=== PATIENT | male | born 1995 | race Caucasian/White ===

== ENCOUNTER 2019-03-06 09:54 | Emergency (ER) | payer MEDICAID, SELFPAY ==
[2019-03-06 09:55] VITALS: BP 144/80; PULSE 85; RESP 17; TEMP 36.7; O2SAT 99; BMI 31.2
--- NOTE | 2019-03-06 10:25 | VDLE_ITS ---
Reason For Study: Pain, Swelling Procedure LEFT Exam performed portable in ED. GSV is normal. A preliminary report was called and/or faxed CFV is compressible, spontaneous, phasic, to ED Nurse. competent, and demonstrates normal augmentation. FV is compressible, spontaneous, phasic, competent and demonstrates normal augmentation. POP V is compressible, spontaneous, phasic, competent and demonstrates normal augmentation. T/P Trunk is compressible. PTV is compressible. LT PerV is compressible. Nonvascular heterogenous structure noted in the proximal calf muscle. Interpretation Summary There is no evidence of left lower extremity deep vein thrombosis. Left great saphenous vein appears patent and compressible segmentally. Heterogenous proximal left calf muscular lesion. Dimensions are not reported but clinical correlation and if required additional soft tissue imaging would be appropriate Ordering Physician: Марина Bedolla Performed By: Hermila Myers RVT
--- NOTE | 2019-03-06 10:27 | ED.VIS.LOWEX ---
History of Present Illness Chief Complaint: Lower Extremity Injury Informant: Patient Occurred: Weeks - 1 Context: Gradual Onset Timing: Continuous Quality of Pain: Aching Narrative: Patient is a 23-year-old male with no significant past history presenting with left lower leg pain. Patient states it started about a week ago. He denies any trauma or injury. He states he works regularly but did not start after a leg day. He has been taking Ibuprofen with minimal relief of his symptoms. His cousin who is a PA look at his leg and was worried about blood clots patient came to the emergency room to be evaluated further. Patient does not have a primary care doctor. He denies any recent travel or immobilization. He denies any history of DVT or PE. He denies any chest pain or shortness of breath. Past Medical History - Allergies and Home Meds Allergies/Adverse Reactions: Allergies No Known Allergies Allergy (Verified 03/06/19 09:55) Primary Care Physician: Ubaldo Galvan DO [STAFF PHYSICIAN] - Drake Le MD [NON-STAFF] - Past Medical History: None Surgical History: noncontributory Smoking Status: Current every day smoker Review of Systems General: Denies: Chills, Fever, Sweats Eyes: Denies: Visual changes - bilaterally, Diplopia Cardiovascular: Denies: Chest pain, Palpitations Respiratory: Denies: Dyspnea, Cough, Dyspnea on exertion Gastrointestinal: Denies: Abdominal pain, Nausea, Vomiting, Diarrhea, Melena, Hematochezia Genitourinary: Denies: Dysuria, Hematuria, Frequency Musculoskeletal: Reports: Swelling - left calf, Extremity Pain - left calf . Denies: Back pain Skin: Denies: Rash, Wounds Neurological: Denies: Headache, Weakness, Numbness Physical Exam Vital Signs/Narrative: Vital Signs Temp Pulse Resp BP Pulse Ox 03/06/19 09:55 98.0 F 85 17 144/80 H 99 Inital Vital Signs reviewed: Yes - Extremity Exam Left Knee: - - Normal. Negative for: Deformity, Edema, Limited ROM Left Tib Fib: - - Tenderness to palpation calf muscle. Compartments are soft. No pitting edema. I do not appreciate edema. No erythema or skin changes Left Ankle: - - Normal General: Well nourished, Well developed Head: Normocephalic, Atraumatic Eyes: Perrl, EOMI ENT: No Trauma, Moist Mucous Membranes Neck: Nontender, Full ROM Cardiovascular: Regular rate, Regular rhythm, No murmurs Respiratory: No distress, CTA bilaterally, Chest nontender Abdomen: Soft, Nontender, Nondistended, Normal bowel sounds Back: Nontender Skin: Normal color, No rash Neurological: Alert, Oriented x3, Cranial nerves II-XII grossly intact, Normal Strength, Normal Sensation Psychological: Normal affect Diagnostic/Tx/Re-eval - Medical Decision Making Patient has atraumatic swelling and pain of LLE. I am not able to appreciate significant edema on exam. Duplex is negative for DVT but it does show nonvascular mass of left proximal calf which is where his pain is. Patient does not have clinical findings consistent with abscess or infection. Story is not consistent with a tendon rupture. Patient is counseled on findings and need for further evaluation. He is counseled on the possibility that this could be a mass/neoplasm. He is referred to PCP as well as ortho for follow up. Patient is counseled on signs and symptoms requiring return to the emergency room. Patient verbalizes agreement and understand this plan. Patient discharged home in stable and improved condition. ED Disposition - Plan for ED Patient: Disposition: Home or Assisted Living Diagnosis: Pain of left calf Referrals: Ubaldo Galvan DO [STAFF PHYSICIAN] - Drake Le MD [NON-STAFF] - Additional Instructions: You do not have a clot in your leg. The exact cause of your swelling is not clear. He did have some type of abnormal structure noted in the calf muscle on your ultrasound. This is where the pain is. Not sure what it is but I do think you are safe for outpatient follow up. It could be a torn tendon/muscle or a mass. You have been referred to orthopedics as well as a primary care doctor for follow-up. Return if you have worsening symptoms.
== END 2019-03-06 11:43 | disposition home or self-care (01) ==
PROVIDERS: Emergency Provider Emergency Medicine
DX: M79.605 Pain in left leg (principal); F17.210 Nicotine dependence, cigarettes, uncomplicated
CPT/HCPCS: 93971; 99282